=== PATIENT | female | born 1960 | race Caucasian/White ===

== ENCOUNTER → 2024-04-15 10:10 | Outpatient (BNVA) | payer MEDICARE, OTHER, SELFPAY | PROVIDERS: PCP Nurse Practitioner Family; Visit Provider Nurse Practitioner Family | DX: U07.1 COVID-19 (principal); B37.31 Acute candidiasis of vulva and vagina; R11.0 Nausea | CPT/HCPCS: 80053; 80061; 83036; 84443; 85025 ==

== ENCOUNTER → 2024-09-09 15:05 | Outpatient (BNVA) | payer MEDICARE, SELFPAY | PROVIDERS: PCP Nurse Practitioner Family; Visit Provider Nurse Practitioner Family | DX: M25.511 Pain in right shoulder (principal) | CPT/HCPCS: 73030 ==

== ENCOUNTER 2024-09-27 15:46 | Outpatient (CLI) | payer MEDICARE, SELFPAY ==
--- NOTE | 2024-09-27 16:00 | MR_ITS ---
WS: [id number] MRI RIGHT SHOULDER NONCONTRAST TECHNIQUE: Sagittal T2, coronal T1, T2 and proton density imaging. Axial gradient PDE imaging. CLINICAL INFORMATION: M25.511 - Pain in right shoulder COMPARISON: None. FINDINGS: Moderate degenerative arthritis AC joint with subacromial spurring. Mild downsloping acromion with impingement on the supraspinatus. Small amount of subacromial subdeltoid fluid. Tendinopathy supraspinatus and infraspinatus. Chronic thinning of the supraspinatus. Small interstitial tears distal suprasp inatus. No tendon retraction. Normal teres minor. Biceps tendon appears intact within the bicipital groove. Intra-articular biceps tendon appears intact. Biceps labral anchor appears intact. Degenerative fraying of the glenoid labrum. Moderate degenerative narrowing glenohumeral articulation. MR/MR shoulder RT wo con* [id number] IMPRESSION: 1. Moderate degenerative arthritis AC joint with subacromial spurring with imp ingement on the supraspinatus 2. Tendinopathy supraspinatus and infraspinatus. Chronic thinning of the supra spinatus. 3. Small interstitial tears distal supraspinatus. 4. Biceps tendon appears intact within the bicipital groove. Intra-articular b iceps tendon appears intact 5. Moderate degenerative narrowing glenohumeral articulation.
== END 2024-09-27 15:47 | disposition home or self-care (01) ==
LOC: RAD 15:51
PROVIDERS: PCP Nurse Practitioner Family; Visit Provider Nurse Practitioner Family
DX: M19.011 Primary osteoarthritis, right shoulder (principal); M75.41 Impingement syndrome of right shoulder; M75.111 Incomplete rotator cuff tear or rupture of right shoulder, not specified as traumatic; M67.813 Other specified disorders of tendon, right shoulder
CPT/HCPCS: 73221

== ENCOUNTER → 2024-10-02 10:38 | Outpatient (BNVA) | payer MEDICARE, SELFPAY | PROVIDERS: PCP Nurse Practitioner Family; Visit Provider Specialist | DX: M75.01 Adhesive capsulitis of right shoulder (principal); M25.811 Other specified joint disorders, right shoulder; M77.8 Other enthesopathies, not elsewhere classified | CPT/HCPCS: 20610; 73030; 99204; J1100; J2795; J3301; J9999 ==

== ENCOUNTER 2024-10-07 06:30 | Outpatient (RCR) | payer MEDICARE, SELFPAY | END 2024-11-05 23:59 | disposition home or self-care (01) | LOC: TPT 06:30 | PROVIDERS: PCP Nurse Practitioner Family; Visit Provider Specialist | DX: M25.811 Other specified joint disorders, right shoulder (principal); M75.01 Adhesive capsulitis of right shoulder; M77.8 Other enthesopathies, not elsewhere classified | CPT/HCPCS: 97161 ==

== ENCOUNTER 2024-11-27 11:02 | Outpatient (RCR) | payer MEDICARE, SELFPAY | END 2024-12-06 23:59 | disposition home or self-care (01) | LOC: TPT 11:02 | PROVIDERS: PCP Nurse Practitioner Family; Visit Provider Specialist | DX: M25.811 Other specified joint disorders, right shoulder (principal); M75.01 Adhesive capsulitis of right shoulder; M77.8 Other enthesopathies, not elsewhere classified | CPT/HCPCS: 97110 ==

== ENCOUNTER → 2024-12-02 08:23 | Outpatient (BNVA) | payer MEDICARE, SELFPAY | PROVIDERS: PCP Nurse Practitioner Family; Visit Provider Specialist | DX: M25.811 Other specified joint disorders, right shoulder (principal); M75.01 Adhesive capsulitis of right shoulder; M75.81 Other shoulder lesions, right shoulder | CPT/HCPCS: 99213 ==

== ENCOUNTER → 2025-01-13 10:37 | Outpatient (BNVA) | payer MEDICARE, SELFPAY | PROVIDERS: PCP Nurse Practitioner Family; Visit Provider Nurse Practitioner Family | DX: F41.9 Anxiety disorder, unspecified (principal); F32.A Depression, unspecified; R11.0 Nausea | CPT/HCPCS: 80053; 80061; 84443; 85025 ==

== ENCOUNTER 2025-01-20 17:19 | Outpatient (CLI) | payer MEDICARE, SELFPAY ==
--- NOTE | 2025-01-20 17:30 | CT_ITS ---
WS: [id number] LDCT LUNG CANCER SCREENING TECHNIQUE: Noncontrast CT of the chest with coronal and sagittal reformatted images. CLINICAL INFORMATION: Z12.2 - Encounter for screening for malignant neoplasm of... COMPARISON: None. DLP: 135.51 mGy.cm DIvol: Mean CTDIvol: 3.30 (mGy) All CT scans at [facility] use at least one of these dose optimization techniques: automated exposure control; mA and/or kV adjustment per patient size (includes targeted exams where dose is matched to clinical indication); or iterative reconstruction. FINDINGS: Several small RIGHT perifissural nodules. A Few subcentimeter nodules in the RIGHT upper lobe. Few tiny nodules in the LEFT lung. No suspicious pulmonary parenchymal opacities. Cholecystectomy clips. Adrenal glands are normal. Minimal aortic calcification. No mediastinal or hilar lymphadenopathy. No axillary lymphadenopathy. Mild thoracic curve. CT/CT lung screening [id number] IMPRESSION: LUNG-RADS: 2-Benign Appearance or Behavior FOLLOW UP: 12 Month: Continue annual screening with LDCT
== END 2025-01-20 17:20 | disposition home or self-care (01) ==
PROVIDERS: PCP Nurse Practitioner Family; Visit Provider Nurse Practitioner Family
DX: Z12.2 Encounter for screening for malignant neoplasm of respiratory organs (principal)
CPT/HCPCS: 71271

== ENCOUNTER 2025-01-22 13:51 | Outpatient (CLI) | payer MEDICARE, SELFPAY ==
--- NOTE | 2025-01-22 14:00 | MM_ITS ---
WS: [id number] Bilateral screening 3D tomosynthesis digital mammogram, 01/22/2025 2:00 PM Clinical Data: Z12.39 - Encounter for other screening for malignant neop... Comparison: None. Findings: No spiculated masses or clustered calcifications are seen. There are no secondary signs of carcinoma. MM/MM scr BI tomosynthesis [id number] Impression: Negative bilateral mammogram with no prior exam for review. Recommend annual screening mammograms. BIRADS: 1 - Negative. FOLLOW UP: 1 Year Follow-up DENSITY: The breasts are almost entirely fatty. The CAD unloading checker was used
== END 2025-01-22 13:52 | disposition home or self-care (01) ==
LOC: MOBLMAM 13:57
PROVIDERS: PCP Nurse Practitioner Family; Visit Provider Nurse Practitioner Family
DX: Z12.31 Encounter for screening mammogram for malignant neoplasm of breast (principal); R92.313 Mammographic fatty tissue density, bilateral breasts
CPT/HCPCS: 77063; 77067

== ENCOUNTER → 2025-01-24 08:48 | Outpatient (BNVA) | payer MEDICARE, SELFPAY | PROVIDERS: PCP Nurse Practitioner Family; Visit Provider Specialist | DX: M75.01 Adhesive capsulitis of right shoulder (principal); M25.811 Other specified joint disorders, right shoulder; M75.81 Other shoulder lesions, right shoulder | CPT/HCPCS: 20610; J1100; J2795; J3301; J9999 ==